=== PATIENT | male | born 1965 | race Caucasian/White ===

== ENCOUNTER 2023-05-24 14:46 | Emergency (ER) | payer BC ==
[2023-05-24 15:17] VITALS: RESP 18
[2023-05-24 15:41] VITALS: PULSE 100
[2023-05-24] MEDS ORDERED: lisinopriL 10 MG TAB PO STA (15:55)
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
[2023-05-24 16:28] VITALS: BP 181/112; TEMP 98
== END 2023-05-24 16:35 | disposition home or self-care (01) ==
LOC: EC 14:46
DX: Z76.0 Encounter for issue of repeat prescription (principal); I10 Essential (primary) hypertension; F17.200 Nicotine dependence, unspecified, uncomplicated; Z79.899 Other long term (current) drug therapy
CPT/HCPCS: 99283